=== PATIENT | female | born 1985 | race African-American/Black ===

== ENCOUNTER 2019-10-03 00:46 | Inpatient (IN) | payer SELFPAY ==
[~2019-10-03] VITALS: Ht 170.2 cm; Wt 93.0 kg
[2019-10-03] MEDS ORDERED: PREN1TAB78 PO (01:42)
[2019-10-03] MEDS ORDERED: DEXT 5%/LR + PITOCIN 20UNITS/L 1,000 ML IV SCH (05:29)
[2019-10-03] MEDS ORDERED: LACTATED RINGERS 500ML 500 ML IV SCH (05:30)
[2019-10-03] MEDS ORDERED: LIDOCAINE HCL 1% 20ML VIAL (Pyxis) INJ INFIL SCH ×2 (05:30)
[2019-10-03] MEDS ORDERED: CARBOPROST TROMETHAMINE 250 MCG/ML AMPUL IM PRN ×2 (05:30)
[2019-10-03] MEDS ORDERED: BUTORPHANOL TARTRATE 2 MG/ML VIAL IV PRN ×3 (05:30→20:15)
[2019-10-03] MEDS ORDERED: METHYLERGONOVINE MALEATE 0.2 MG/ML IM PRN ×2 (05:30)
[2019-10-03] MEDS ORDERED: MISOPROSTOL 100MCG TABLET VG SCH (05:30)
[2019-10-03] MEDS ORDERED: NALOXONE HCL 0.4 MG/ML 1ML VIAL IM PRN ×2 (05:30)
[2019-10-03 06:35] LABS: BASOPHILS % 0.4 % (0.0-2.0); EOSINOPHILS % 1.5 % (0.0-5.0); HEMATOCRIT. 34.9 % (36.0-48.0); HEMOGLOBIN. 11.7 g/dL (12.0-16.0); LYMPHOCYTES % 28.5 % (20.0-50.0); MEAN CORPUSCULAR HEMOGLOBIN 29.5 pg (28.0-32.0); MEAN CORPUSCULAR VOLUME 87.9 fL (81.0-99.0); MEAN PLATELET VOLUME 10.9 fl (7.4-10.4); MONOCYTES % 12.1 % (2.0-8.0); NEUTROPHILS % 57.5 % (40.0-76.0); PLATELET 141 x1000/uL (130-400); RED BLOOD CELL COUNT 3.98 mill/uL (4.2-5.4); RED CELL DISTRIBUTION WIDTH 14.8 % (11.6-14.6)
[2019-10-03] MEDS: LACTATED RINGERS 500ML 500 ML IV SCH ×4 (06:35→13:14)
[2019-10-03 06:44] LABS: INR 0.9; PROTHROMBIN TIME 9.4 sec (9.6-11.0)
[2019-10-03 07:05] LABS: *AMPHETAMINES SCREEN URINE NEGATIVE (NEGATIVE); *BARBITURATES SCREEN URINE NEGATIVE (NEGATIVE); *BENZODIAZEPINES SCREEN URINE NEGATIVE (NEGATIVE); *COCAINE SCREEN URINE NEGATIVE (NEGATIVE); CANNABINOID URINE SCREEN NEGATIVE (NEGATIVE); METHADONE URINE SCREEN NEGATIVE (NEGATIVE); OPIATES URINE SCREEN NEGATIVE (NEGATIVE); PHENCYCLIDINE URINE SCREEN NEGATIVE (NEGATIVE)
[2019-10-03 07:27] LABS: HEPATITIS B SURFACE ANTIGEN NEGATIVE
[2019-10-03] MEDS ORDERED: ROPIVACAINE HCL/PF EPIDURAL 200 ML EPI SCH (10:15)
[2019-10-03] MEDS: ONDANSETRON HCL 4MG/2ML INJ IV PRN ×2 (13:49→19:45)
[2019-10-03] MEDS: DEXT 5%/LACTATED RINGERS 1,000 ML IV SCH ×2 (16:48→20:22)
[2019-10-04] MEDS: ONDANSETRON HCL 4MG/2ML INJ IV PRN (00:04)
[2019-10-04] MEDS ORDERED: BENZOCAINE/LANOLIN/ALOE VERA SPRAY TOP PRN (02:30)
[2019-10-04] MEDS ORDERED: IBUPROFEN 400MG TABLET PO PRN (02:30)
[2019-10-04] MEDS ORDERED: RHO(D) IMMUNE GLOBULIN 300 MCG/SYR IM PRN (02:30)
[2019-10-04] MEDS: DEXT 5%/LR + PITOCIN 20UNITS/L 1,000 ML IV SCH ×2 (02:43→05:25)
[2019-10-04] MEDS: IBUPROFEN 800MG TABLET PO PRN ×3 (03:51→20:02)
[2019-10-04 05:30] VITALS: BP 132/84
[2019-10-04 07:15] VITALS: BP 121/62
[2019-10-04 09:59] LABS: BASOPHILS % 0.2 % (0.0-2.0); EOSINOPHILS % 0.2 % (0.0-5.0); HEMATOCRIT. 31.9 % (36.0-48.0); HEMOGLOBIN. 10.7 g/dL (12.0-16.0); MEAN CORPUSCULAR HEMOGLOBIN 29.7 pg (28.0-32.0); MEAN CORPUSCULAR VOLUME 88.5 fL (81.0-99.0); MEAN PLATELET VOLUME 10.8 fl (7.4-10.4); NEUTROPHILS % 74.6 % (40.0-76.0); PLATELET 134 x1000/uL (130-400); RED CELL DISTRIBUTION WIDTH 14.5 % (11.6-14.6)
[2019-10-04 16:00] VITALS: BP 126/86
[2019-10-04 19:00] VITALS: BP 128/79
[2019-10-05 04:00] VITALS: BP 117/69
[2019-10-05 07:50] VITALS: BP 118/68
[2019-10-05] MEDS ORDERED: TETANUS, DIPHTHERIA, PERTUSSIS VAC/PF 0.5ML (>7YR OLD) IM ONE (10:00)
[2019-10-05] MEDS ORDERED: INFLUENZA VIRUS VACCINE(AFLURIA) 0.5ML SYR IM ONE (10:00)
== END 2019-10-05 10:50 | disposition home or self-care (01) | DRG 560 ==
LOC: OBSVTOIN 00:46 → 8 EST LDRP 00:46 → 8EST 10-04 04:46
PROVIDERS: ADMIT Obstetrics & Gynecology; ATTEND Obstetrics & Gynecology
PROC: 0KQM0ZZ Repair Perineum Muscle, Open Approach (ICD-10-PCS; principal; 2019-10-04)
PROC: 10D07Z6 Extraction of Products of Conception, Vacuum, Via Natural or Artificial Opening (ICD-10-PCS; 2019-10-04)
PROC: 00HU33Z Insertion of Infusion Device into Spinal Canal, Percutaneous Approach (ICD-10-PCS; 2019-10-04)
PROC: 3E0R3BZ Introduction of Anesthetic Agent into Spinal Canal, Percutaneous Approach (ICD-10-PCS; 2019-10-04)
DX: O36.63X0 Maternal care for excessive fetal growth, third trimester, not applicable or unspecified (principal); D64.9 Anemia, unspecified; O70.1 Second degree perineal laceration during delivery; Z37.0 Single live birth; Z3A.39 39 weeks gestation of pregnancy; Z82.49 Family history of ischemic heart disease and other diseases of the circulatory system; Z83.3 Family history of diabetes mellitus; O99.62 Diseases of the digestive system complicating childbirth; K21.9 Gastro-esophageal reflux disease without esophagitis; O99.02 Anemia complicating childbirth
CPT/HCPCS: 36415; 76805; 80305; 85025; 86592; 86703; 86762; 86850; 86900; 87340; 90686; 90715; G0378; J0595; J2405; J2590; J2795; J3010; J7120; J7121; A4315